=== PATIENT | male | born 1930 | race Caucasian/White ===

== ENCOUNTER 2017-04-02 01:00 | Emergency (ER) | payer MEDICARE, OTHER ==
[~2017-04-02] VITALS: Ht 172.7 cm; Wt 92.0 kg
--- NOTE | 2017-04-02 01:18 | PD ---
HPI Chief Complaint: Psychiatric Symptoms Time Seen by Provider: 01:09 Travel History International Travel<30 days: No Contact w/Intl Traveler<30days: No Traveled to known affect area: No History of Present Illness HPI PATIENT SPEAKS [place] CITIZ[place] AND HILDA GONZALEZ WAS ABLE TO TRANSLATE FOR US [facility] / BROUGHT PATIENT TO ER DUE TO STEPDAUGHTER CALLING BECAUSE OF STRANGE BEHAVIOR AND ACCESS TO A GUN WHICH HE KEEPS IN KITCHEN...WHEN STEPDAUGHTER VISITED APPARENTLY PATIENT DID NOT RECOGNIZE HER AND HE TOLD HER TO LEAVE AND HIS HAND APPROACHED GUN BUT DID NOT POINT IT AT HER....CALLED 911 AND WAS CONCERNED FOR HIS SAFETY. PD [place] ACTED....PATIENT OTHERWISE HAS NO ACTUAL COMPLAINT (SPECIFICALLY DENIED COUGH/RUNNY NOSE/BODY ACHES/CP/ABD PAIN/STEWART/N/V/D AT THIS POINT) ALL: TYLENOL [facility] Social History Tobacco Use: No Allergies-Medications (Allergen,Severity, Reaction): Coded Allergies: acetaminophen (Verified Allergy, Severe, 04/02/17) Per pt. Tetanus Vaccines and Toxoid (Verified Allergy, Unknown, 04/02/17) Per pt. Reported Meds & Prescriptions Reported Meds & Active Scripts Active Reported Glipizide 5 Mg Tab 5 Mg PO DAILY Take 30 minutes before a meal Simvastatin 80 Mg Tab 80 Mg PO DAILY Flonase Nasal [place] (Fluticasone Nasal [place]) 50 Mcg/Act [place] 50 Mcg EACH NARE BID Lopressor (Metoprolol Tartrate) 50 Mg Tab 50 Mg PO DAILY Enalapril (Enalapril Maleate) 5 Mg Tab 5 Mg PO BID Aspirin Children's (Aspirin) 81 Mg Chew 81 Mg CHEW DAILY Review of Systems ROS Limitations: Other: (CONFUSION) Except as stated in HPI: all other systems reviewed are Neg Physical Exam Narrative GENERAL: SKIN: Warm and dry. HEAD: Atraumatic. Normocephalic. EYES: Pupils equal and round. No scleral icterus. No injection or drainage. ENT: No nasal bleeding or discharge. Mucous membranes pink and moist. NECK: Trachea midline. No JVD. CARDIOVASCULAR: Regular rate and rhythm. RESPIRATORY: No accessory muscle use. Clear to auscultation. Breath sounds equal bilaterally. GASTROINTESTINAL: Abdomen soft, non-tender, nondistended. MUSCULOSKELETAL: Extremities without clubbing, cyanosis, or edema. No obvious deformities. NEUROLOGICAL: Awake BUT CONFUSED . No obvious cranial nerve deficits. Motor grossly within normal limits. Five out of 5 muscle strength in the arms and legs. Normal speech, AND SEEMED ABLE TO FOLLOW SIMPLE COMMANDS ONCE TRANSLATED PSYCHIATRIC: DIFF TO ASSESS DUE TO LANGUAGE BARRIER. Data Data Last Documented VS Vital Signs Date Time Temp Pulse Resp B/P Pulse Ox O2 Delivery O2 Flow Rate FiO2 04/02/17 11:00 98.0 74 16 152/78 98 Room Air Orders Complete Blood Count With Diff (04/02/17 01:09) Comprehensive Metabolic Panel (04/02/17 01:09) Thyroid Stimulating Hormone (04/02/17 01:09) Urinalysis - C+S If Indicated (04/02/17 01:09) Electrocardiogram (04/02/17 01:09) Psych Screen (04/02/17 01:09) Drug Screen, Random Urine (04/02/17 01:09) Alcohol (Ethanol) (04/02/17 01:09) Salicylates (Aspirin) (04/02/17 01:09) Tylenol (Acetaminophen) (04/02/17 01:09) Chest, Single Ap (04/02/17 01:09) Ct Brain W/O Iv Contrast(Rout) (04/02/17 01:09) Labs Laboratory Tests Test 04/02/17 01:30 White Blood Count 10.2 TH/MM3 Red Blood Count 4.31 MIL/MM3 Hemoglobin 12.8 GM/DL Hematocrit 38.5 % Mean Corpuscular Volume 89.2 FL Mean Corpuscular Hemoglobin 29.7 PG Mean Corpuscular Hemoglobin 33.3 % Concent Red Cell Distribution Width 14.1 % Platelet Count 163 TH/MM3 Mean Platelet Volume 8.7 FL Neutrophils (%) (Auto) 79.6 % Lymphocytes (%) (Auto) 11.7 % Monocytes (%) (Auto) 5.4 % Eosinophils (%) (Auto) 1.8 % Basophils (%) (Auto) 1.5 % Neutrophils # (Auto) 8.1 TH/MM3 Lymphocytes # (Auto) 1.2 TH/MM3 Monocytes # (Auto) 0.6 TH/MM3 Eosinophils # (Auto) 0.2 TH/MM3 Basophils # (Auto) 0.2 TH/MM3 CBC Comment AUTO DIFF Differential Comment AUTO DIFF CONFIRMED Platelet Estimate NORMAL Platelet Morphology Comment NORMAL Urine Color YELLOW Urine Turbidity CLEAR Urine pH 5.5 Urine Specific [place] 1.023 Urine Protein TRACE mg/dL Urine Glucose (UA) 300 mg/dL Urine Ketones NEG mg/dL Urine Occult Blood NEG Urine Nitrite NEG Urine Bilirubin NEG Urine Urobilinogen LESS THAN 2.0 MG/DL Urine Leukocyte Esterase NEG Urine RBC LESS THAN 1 /hpf Urine WBC LESS THAN 1 /hpf Urine Squamous Epithelial <1 /hpf Cells Urine Bacteria RARE /hpf Urine Mucus FEW /lpf Microscopic Urinalysis Comment CULT NOT INDICATED Sodium Level 141 MEQ/L Potassium Level 4.0 MEQ/L Chloride Level 109 MEQ/L Carbon Dioxide Level 23.4 MEQ/L Anion Gap 9 MEQ/L Blood Urea Nitrogen 21 MG/DL Creatinine 1.40 MG/DL Estimat Glomerular Filtration 48 ML/MIN Rate Random Glucose 163 MG/DL Calcium Level 8.5 MG/DL Total Bilirubin 0.7 MG/DL Aspartate Amino Transf 15 U/L (AST/SGOT) Alanine Aminotransferase 29 U/L (ALT/SGPT) Alkaline Phosphatase 61 U/L Total Protein 7.0 GM/DL Albumin 3.7 GM/DL Thyroid Stimulating Hormone 3.470 uIU/ML 3rd Gen Salicylates Level LESS THAN 1.7 MG/DL Urine Opiates Screen NEG Acetaminophen Level LESS THAN 2.0 MCG/ML Urine Barbiturates Screen NEG Urine Amphetamines Screen NEG Urine Benzodiazepines Screen NEG Urine Cocaine Screen NEG Urine Cannabinoids Screen NEG Ethyl Alcohol Level LESS THAN 3 MG/DL [facility] Medical Decision Making Medical Screen Exam Complete: Yes Emergency Medical Condition: Yes Medical Record Reviewed: Yes Interpretation(s) NSR 65, NONSPEC STT CHANGES Differential Diagnosis ICH V INFECTION(UTI, PNA CAUSE OF CONFUSION) V HYPONATREMIA/HYPOGLYCEMIA Narrative Course CT NEG FOR ICH, CXR NEG FOR PNA, NO ELECTROLYTE ABNL NOTED, AND NO STEMI ON EKG , NO MEDICAL CAUSE OF CONFUSION NOTED Diagnosis Primary Impression: MEDICALLY CLEARED FOR PSYCHIATRIC HOLD Admitting Information Admitting Physician Requests: Observation Fili Kelly MD Apr 02, 2017 01:18
[2017-04-02 01:20] VITALS: BP 167/72; PULSE 67; RESP 18; TEMP 97.7; O2SAT 94
[2017-04-02] MEDS ORDERED: ASPI81CH7 CHEW (01:28)
[2017-04-02 01:42] LABS: AUTOMATED NEUTROPHIL # 8.1 TH/MM3 (1.8-7.7); BASOPHIL # 0.2 TH/MM3 (0-0.2); BASOPHIL % 1.5 % (0.0-2.0); EOSINOPHIL # 0.2 TH/MM3 (0-0.4); EOSINOPHIL % 1.8 % (0.0-4.0); HEMATOCRIT 38.5 % (39.0-51.0); LYMPH % 11.7 % (9.0-44.0); LYMPHOCYTE # 1.2 TH/MM3 (1.0-4.8); MEAN CELL VOLUME 89.2 FL (80.0-100.0); MEAN CORPUSCULAR HEMOGLOBIN 29.7 PG (27.0-34.0); MEAN CORPUSCULAR HGB CONC 33.3 % (32.0-36.0); MONO % 5.4 % (0.0-8.0); NEUT % 79.6 % (16.0-70.0); PLATELET COUNT 163 TH/MM3 (150-450); RED BLOOD COUNT 4.31 MIL/MM3 (4.50-5.90); RED CELL DISTRIBUTION WIDTH 14.1 % (11.6-17.2); WHITE BLOOD COUNT 10.2 TH/MM3 (4.0-11.0)
[2017-04-02 01:44] LABS: BACTERIA, URINE RARE /hpf; BLOOD, URINE NEG (NEG); COMMENT (UR) CULT NOT INDICATED; CULTURE IF INDICATED CULT NOT INDICATED; GLUCOSE,URINE 300 mg/dL (NEG); KETONE, URINE NEG (NEG); MUCUS URINE FEW /lpf (OCC); NITRITE,URINE NEG (NEG); PH, URINE 5.5 (5.0-8.5); SQUAMOUS EPITHELIAL CELL URINE <1 /hpf (0-5); URINE COLOR YELLOW (YELLW/STRAW)
[2017-04-02 01:45] LABS: HEMO FLAGS AUTO DIFF
--- NOTE | 2017-04-02 01:47 | RADRPT ---
EXAM DATE/TIME: 04/02/2017 01:36 [facility] COMPARISON: No previous studies available for comparison. INDICATIONS : Chest pain. MEDICAL HISTORY : None. SURGICAL HISTORY : None. ENCOUNTER: Initial ACUITY: 1 day PAIN SCORE: 0/10 LOCATION: Bilateral chest FINDINGS: There is a focal interstitial infiltrate in the lower lateral right lung neither costophrenic angle. No blunting of the costophrenic angle and both hemidiaphragms are well delineated. The remainder of the lungs are clear. The heart is normal size. Moderate degenerative changes in thoracic spine. CONCLUSION: Focal non-consolidative interstitial infiltrate lower lateral right lung. Riaz Beauchamp MD on April 02, 2017 at 1:45 Board Certified Radiologist. This report was verified electronically.
--- NOTE | 2017-04-02 02:06 | RADRPT ---
EXAM DATE/TIME: 04/02/2017 01:53 [facility] COMPARISON: No previous studies available for comparison. INDICATIONS : Altered mental status. RADIATION DOSE: 40.90 CTDIvol (mGy) MEDICAL HISTORY : Hypertension. Brain bleed. SURGICAL HISTORY : Craniotomy. ENCOUNTER: Initial ACUITY: 1 day PAIN SCALE: 0/10 LOCATION: cranial TECHNIQUE: Multiple contiguous axial images were obtained of the head. Using automated exposure control and adj ustment of the mA and/or kV according to patient size, radiation dose was kept as low as reasonably a chievable to obtain optimal diagnostic quality images. DICOM format image data is available electro nically for review and comparison. FINDINGS: CEREBRUM: The ventricles and sulci are prominent characteristic of mild central and cortical atrophy. Atrophy is more prominent on the left than on the right and there is evidence of prior left parietal cranioto my. No evidence of midline shift, mass lesion, hemorrhage or acute infarction. No extra-axial fluid collections are seen. POSTERIOR FOSSA: The cerebellum and brainstem are intact. The 4th ventricle is midline. The cerebellopontine angle i s unremarkable. EXTRACRANIAL: The visualized portion of the orbits is intact. SKULL: Prior left parietal craniotomy with good approximation of the craniotomy flap. CONCLUSION: No acute findings in the brain. Riaz Beauchamp MD on April 02, 2017 at 2:03 Board Certified Radiologist. This report was verified electronically.
[2017-04-02 02:09] LABS: ALT (GPT) 29 U/L (12-78); ANION GAP 9 MEQ/L (5-15); AST (GOT) 15 U/L (15-37); BICARBONATE 23.4 MEQ/L (21.0-32.0); BLOOD UREA NITROGEN 21 MG/DL (7-18); CHLORIDE 109 MEQ/L (98-107); GLOMERULAR FILTRATION RATE 48 ML/MIN (>89); SODIUM (NA) 141 MEQ/L (136-145)
[2017-04-02 02:19] LABS: ACETAMINOPHEN LESS THAN 2.0 MCG/ML (10.0-30.0); ALKALINE PHOSPHATASE 61 U/L (45-117); TOTAL BILIRUBIN ADULT 0.7 MG/DL (0.2-1.0)
[2017-04-02 02:20] LABS: SCAN/DIFF AUTO DIFF CONFIRMED
[2017-04-02 02:21] LABS: PLATELET ESTIMATE SMEAR NORMAL (NORMAL); PLATELET MORPHOLOGY NORMAL (NORMAL)
[2017-04-02 02:23] LABS: ALCOHOL LESS THAN 3 MG/DL (0-5)
[2017-04-02 07:00] VITALS: BP 148/78; PULSE 65; RESP 16; O2SAT 97
[2017-04-02 11:00] VITALS: BP 152/78; PULSE 74; RESP 16; TEMP 98; O2SAT 98
--- NOTE | 2017-04-02 12:50 | PD ---
History of Present Illness Chief Complaint: Psychiatric Symptoms Time Seen by Provider: 12:30 Travel History International Travel<30 Days: No Contact w/Intl Traveler<30days: No Known affected area: No Legal Status Legal Status: Perez Act Perez Act Signed By: Nicola Cid History of Present Illness: This is an 86-year-old male brought in under a Perez act for strange behavior and access to a gun. According to the stepdaughter (patient feels she is his daughter) he did not recognize her and he told her to leave his home and his hand approached a gun. Patient is American-speaking only and this physician worked with nurse Conner to interview the patient. The patient is alert and oriented 3. His has been admitted to the hospital and he has been shopping for groceries, cooking, visiting her and bringing food. He states that his daughter came from [place] to visit but is trying to get him to spend money on her. He does not like having the daughter live with him but has had difficulty getting her to leave. He admits to having verbal altercations with her. Patient appears to be cognitively intact and denies any suicidal or homicidal ideation plan or intent. No evidence of psychosis. He is verbally bethany for safety and states he showed the gun to law enforcement because they asked about it. PFSH Past Medical History Arthritis: Yes Heart Rhythm Problems: Yes Cardiovascular Problems: Yes (STENT PLACED) Diabetes: Yes Patient Takes Glucophage: No Diminished Hearing: Yes Hypertension: Yes Medical other: Yes (RESTLESS LEG SYNDROME) Past Surgical History Cardiac Surgery: Yes (STENT PLACED) Eye Surgery: Yes (CATARACT) Neurologic Surgery: Yes (BRAIN BLEED) Psychiatric History Psychiatric History Hx Psychiatric Treatment: Denied History of Inpatient Treatment: No Guns or firearms in home: Yes Social History Hx Alcohol Use: No Hx Tobacco Use: No Hx Substance Use: No Hx of Substance Use Treatment: No Allergies-Medications (Allergen,Severity, Reaction): Coded Allergies: acetaminophen (Verified Allergy, Severe, 04/02/17) Reported Meds & Prescriptions Reported Meds & Active Scripts Active Reported Aspirin Children's (Aspirin) 81 Mg Chew 81 Mg CHEW DAILY Review of Systems Except as stated in HPI: all other systems reviewed are Neg Exam Alert: Yes [place]: Person, Place, Date, Situation Mood: Calm Affect: Appropriate Speech: Clear, Logical Eye Contact: Normal Memory Intact: Immediate, Recent, Remote Insight/Judgement Adequate MDM Medical Decision Making Medical Record Reviewed: Yes Assessment/Plan This physician reviewed the patient's record and spoke with his nurse as well as the lead cargoman nurse. Patient does not appear to meet Perze act criteria and does not appear to meet criteria for involuntary psychiatric hospitalization. Patient has the cognitive wherewithal to care for himself in a physical ability to do so. Therefore, the Perez act was lifted and patient is being discharged home. Orders Complete Blood Count With Diff (04/02/17 01:09) Comprehensive Metabolic Panel (04/02/17 01:09) Thyroid Stimulating Hormone (04/02/17 01:09) Urinalysis - C+S If Indicated (04/02/17 01:09) Electrocardiogram (04/02/17 01:09) Psych Screen (04/02/17 01:09) Drug Screen, Random Urine (04/02/17 01:09) Alcohol (Ethanol) (04/02/17 01:09) Salicylates (Aspirin) (04/02/17 01:09) Tylenol (Acetaminophen) (04/02/17 01:09) Chest, Single Ap (04/02/17 01:09) Ct Brain W/O Iv Contrast(Rout) (04/02/17 01:09) Results Vital Signs Date Time Temp Pulse Resp B/P Pulse Ox O2 Delivery O2 Flow Rate FiO2 04/02/17 11:00 98.0 74 16 152/78 98 Room Air 04/02/17 01:20 97.7 67 18 167/72 94 Room Air 04/02/17 01:11 Laboratory Tests Test 04/02/17 01:30 White Blood Count 10.2 Red Blood Count 4.31 Hemoglobin 12.8 Hematocrit 38.5 Mean Corpuscular Volume 89.2 Mean Corpuscular Hemoglobin 29.7 Mean Corpuscular Hemoglobin 33.3 Concent Red Cell Distribution Width 14.1 Platelet Count 163 Mean Platelet Volume 8.7 Neutrophils (%) (Auto) 79.6 Lymphocytes (%) (Auto) 11.7 Monocytes (%) (Auto) 5.4 Eosinophils (%) (Auto) 1.8 Basophils (%) (Auto) 1.5 Neutrophils # (Auto) 8.1 Lymphocytes # (Auto) 1.2 Monocytes # (Auto) 0.6 Eosinophils # (Auto) 0.2 Basophils # (Auto) 0.2 CBC Comment AUTO DIFF Differential Comment AUTO DIFF CONFIRMED Platelet Estimate NORMAL Platelet Morphology Comment NORMAL Urine Color YELLOW Urine Turbidity CLEAR Urine pH 5.5 Urine Specific [place] 1.023 Urine Protein TRACE Urine Glucose (UA) 300 Urine Ketones NEG Urine Occult Blood NEG Urine Nitrite NEG Urine Bilirubin NEG Urine Urobilinogen LESS THAN 2.0 Urine Leukocyte Esterase NEG Urine RBC LESS THAN 1 Urine WBC LESS THAN 1 Urine Squamous Epithelial <1 Cells Urine Bacteria RARE Urine Mucus FEW Microscopic Urinalysis Comment CULT NOT INDICATED Sodium Level 141 Potassium Level 4.0 Chloride Level 109 Carbon Dioxide Level 23.4 Anion Gap 9 Blood Urea Nitrogen 21 Creatinine 1.40 Estimat Glomerular Filtration 48 Rate Random Glucose 163 Calcium Level 8.5 Total Bilirubin 0.7 Aspartate Amino Transf 15 (AST/SGOT) Alanine Aminotransferase 29 (ALT/SGPT) Alkaline Phosphatase 61 Total Protein 7.0 Albumin 3.7 Thyroid Stimulating Hormone 3.470 3rd Gen Salicylates Level LESS THAN 1.7 Urine Opiates Screen NEG Acetaminophen Level LESS THAN 2.0 Urine Barbiturates Screen NEG Urine Amphetamines Screen NEG Urine Benzodiazepines Screen NEG Urine Cocaine Screen NEG Urine Cannabinoids Screen NEG Ethyl Alcohol Level LESS THAN 3 Diagnosis Primary Impression: Adjustment disorder with anxiety El Arevalo MD Apr 02, 2017 12:50
[2017-04-02] MEDS ORDERED: ENAL5TAB PO (12:51)
[2017-04-02] MEDS ORDERED: METO-309 PO (12:51)
[2017-04-02] MEDS ORDERED: SIMV80TA PO (12:52)
[2017-04-02] MEDS ORDERED: FLUT1SPR5 EACH NARE (12:52)
[2017-04-02] MEDS ORDERED: GLIP5TAB8 PO ×2 (12:53→12:54)
[2017-04-02 13:03] VITALS: BP 144/74
--- NOTE | 2017-04-02 15:06 | EKG ---
Date Performed: 04/02/2017 Time Performed: 02:04:36 PTAGE: 86 years EKG: Sinus rhythm NONSPECIFIC T-WAVE ABNORMALITY BORDERLINE ECG NO PREVIOUS TRACING DOCTOR: Clive Alvarado Interpretating Date/Time 04/02/2017 15:05:42
== END 2017-04-02 13:12 | disposition home or self-care (01) ==
LOC: NEPC 01:00 → NEDA 12:18 → UNDOADMIN 12:18
DX: F43.22 Adjustment disorder with anxiety (principal); R94.31 Abnormal electrocardiogram [ECG] [EKG]
CPT/HCPCS: 70450; 71010; 80053; 80307; 81001; 84443; 85025; 93005